=== PATIENT | male | born 1990 | race Caucasian/White ===

== ENCOUNTER 2021-04-22 23:43 | Emergency (ER) | payer MEDICAID ==
[~2021-04-22] VITALS: Ht 172.7 cm; Wt 63.5 kg
[2021-04-22 23:50] VITALS: BP_SYST 124
--- NOTE | 2021-04-22 23:50 | NUR ---
Placed in room 8 . Placed on managed care nurse, blood pressure machine and pulse oximeter. To gown for exam. Side rails up. Report given to Jasmyne BARON.
--- NOTE | 2021-04-23 | NUR ---
PT AAO AND AMBULATORY REPORTING THAT HE INGESTED TWO "UNKNOWN WHITE PILLS" THAT BROUGHT ON A SUDDEN ONSET OF PALPITATIONS. PT REPORTS THAT A RANDOM PERSON GAVE HIM THESE PILLS BUT PT IS CURRENTLY EVASIVE REGA. PT REPORTS RINGING IN EARS AND DIZZINESS. PT REPORTS CURRENT PAIN 8/10 IN CHEST FROM "RACING HEART BEAT." PT HAS NO HISTORY OR ALLERGIES NOTED. PT APPEARS ANXIOUS BUT V/S ARE CURRENTLY STABLE.
--- NOTE | 2021-04-23 00:05 | NUR ---
# 20 gauge angiocath placed to RIGHT AC. Use of asceptic technique. Opsite placed over site. Blood return noted. Blood for lab drawn from site. Flushed with 10 cc of normal saline. No evidence of infiltration noted. Patient tolerated well.
--- NOTE | 2021-04-23 00:20 | NUR ---
DR. JACKSON AT BEDSIDE TO ASSESS.
[2021-04-23] MEDS ORDERED: NACL 0.9% 1,000 ML IV ONE ×2 (00:30→00:45)
--- NOTE | 2021-04-23 00:30 | NUR ---
URINE SPECIMEN OBTAINED AND SENT TO LAB FOR ANALYSIS. 02 AT 2 LITERS APPLIED PER MD ORDER.
[2021-04-23 00:32] LABS: BASOPHILS % (AUTO) 0.4 % (0.0-2.0); EOSINOPHILS % (AUTO) 0.1 % (0.0-4.0); HEMATOCRIT 41.9 % (36-54); HEMOGLOBIN 14.2 g/dL (14.0-18.0); LYMPHOCYTES # (AUTO) 1.9 K/uL (1.0-5.5); LYMPHOCYTES % (AUTO) 24.2 % (20.5-51.5); MEAN CORPUSCULAR HEMOGLOBIN 29 pg (27-31); MEAN CORPUSCULAR HGB CONC 34 % (32-36); MEAN CORPUSCULAR VOLUME 86 fL (79.0-98.0); MONOCYTES # (AUTO) 0.9 K/uL (0.0-1.0); MONOCYTES % (AUTO) 11.6 % (1.7-9.3); NEUTROPHILS % (AUTO) 63.7 % (40.0-70.0); PLATELET COUNT (AUTO) 202 K/uL (130-430); RED BLOOD CELL COUNT(AUTO) 4.86 MIL/uL (4.2-6.2); RED CELL DISTRIBUTION WIDTH 12.9 % (9.0-15.0); WHITE BLOOD COUNT (AUTO) 7.8 K/uL (4.8-10.8)
[2021-04-23] MEDS ORDERED: LORazepam 2 MG/ML VIAL IVP ONE (00:45)
[2021-04-23 00:48] LABS: ANION GAP 13 (5-15); CALCIUM 9.5 mg/dL (8.4-11.0); CHLORIDE 102 mmol/L (98-107); CREATININE 1.03 mg/dL (0.55-1.30); GLUCOSE 123 mg/dL (70-99); POTASSIUM 3.2 mmol/L (3.5-5.1); SODIUM SERUM 143 mmol/L (136-145); UREA NITROGEN, BLOOD 5 mg/dL (8-21)
[2021-04-23] MEDS ORDERED: LORazepam 2 MG/ML VIAL ONE (00:52)
--- NOTE | 2021-04-23 00:53 | NUR ---
PORTABLE CXR DONE AT BEDSIDE.
[2021-04-23 01:02] LABS: BARBITURATE, URINE NEGATIVE (NEG <=200); BENZODIAZEPINE, URINE NEGATIVE (NEG <=150); CANNABINOID, URINE NEGATIVE (NEG <=50); COCAINE, URINE NEGATIVE (NEG <=150); METHAMPHETAMINES SCREEN,URINE NEGATIVE (NEG <=500); OPIATE, URINE NEGATIVE (NEG <=100); PHENCYCLIDINE SCREEN,URINE NEGATIVE (NEG <=25); UR TRICYCLIC ANTIDEPRESSANTS NEGATIVE (NEG <=300); URINE AMPHETAMINE NEGATIVE (NEG <=500); URINE METHADONE NEGATIVE (NEG <=200); URINE OXYCODONE SCREEN NEGATIVE (NEG <=100); URINE PROPOXYPHENE SCREEN NEGATIVE (NEG <=300)
[2021-04-23 01:05] LABS: ACETAMINOPHEN < 1 ug/mL (1-30); ALANINE AMINOTRANSFERASE 22 U/L (12-78); ALBUMIN 4.8 g/dL (3.4-4.8); ALCOHOL, BLOOD < 3 mg/dL (<10); ASPARTATE AMINOTRANSFERASE 17 U/L (10-37); GFR AFRICAN AMERICAN 108 mL/min (>90); TOTAL BILIRUBIN 0.6 mg/dL (0.0-1.0)
--- NOTE | 2021-04-23 01:05 | NUR ---
REPORT GIVEN TO LORAINE HUA WHO WILL ASSUME CARE.
--- NOTE | 2021-04-23 01:10 | NUR ---
Received report from Jasmyne BARON. Patient resting quietly. No acute distress noted. Vital signs within normal range.
--- NOTE | 2021-04-23 02:30 | NUR ---
Patient resting quietly. No acute distress noted. Vital signs within normal range.
[2021-04-23 03:30] VITALS: BP_SYST 107
--- NOTE | 2021-04-23 03:30 | NUR ---
Patient given written and verbal discharge instructions and verbalizes understanding. ER MD discussed with patient the results and treatment provided. Patient in stable condition. ID arm band removed. IV catheter removed intact and dressing applied, no active bleeding. Rx of NONE given. Patient educated on pain management and to follow up with PMD. Pain Scale 0/10. Opportunity for questions provided and answered. Medication side effect fact sheet provided.
== END 2021-04-23 03:30 | disposition home or self-care (01) ==
LOC: SED 23:43
DX: T50.991A Poisoning by other drugs, medicaments and biological substances, accidental (unintentional), initial encounter (principal); F15.90 Other stimulant use, unspecified, uncomplicated; Z79.899 Other long term (current) drug therapy; Y92.89 Other specified places as the place of occurrence of the external cause
CPT/HCPCS: 36415; 71045; 80053; 80307; 84484; 85025; 93005; 96361; 96374; 99285; G0480; J2060; J7030; G0481; G0482